=== PATIENT | female | born 1975 | race Caucasian/White ===

== ENCOUNTER 2024-08-06 12:07 | Emergency (ER) | payer SELFPAY ==
[~2024-08-06] VITALS: Ht 162.6 cm; Wt 72.0 kg
[2024-08-06] MEDS ORDERED: CYCLOBENZAPRINE10 MG PO (14:36)
[2024-08-06] MEDS ORDERED: IBUPROFEN600 MG PO (14:36)
[2024-08-06] MEDS ORDERED: PREDNISONE20 MG PO (14:36)
[2024-08-06 15:01] VITALS: BP 128/74
== END 2024-08-06 15:06 | disposition home or self-care (01) | DRG 556 ==
LOC: ED 12:07
DX: M25.552 Pain in left hip (principal); M54.32 Sciatica, left side; W18.39XA Other fall on same level, initial encounter; Y92.89 Other specified places as the place of occurrence of the external cause; Y99.0 Civilian activity done for income or pay